=== PATIENT | male | born 1985 | race Caucasian/White ===

== ENCOUNTER 2018-01-28 13:44 | Inpatient (IN) | payer MEDICAID ==
[~2018-01-28] VITALS: Ht 177.8 cm; Wt 66.0 kg
[2018-01-28 14:57] LABS: BASOPHILS % (AUTO) 0.9 % (0.0-2.0); EOSINOPHILS % (AUTO) 1.9 % (1.0-6.0); HEMOGLOBIN 15.7 g/dL (13.5-17.5); LYMPHOCYTES # (AUTO) 1.8 K/uL (1.0-4.8); LYMPHOCYTES % (AUTO) 19.6 % (22.0-44.0); MEAN CORPUSCULAR HEMOGLOBIN 28.7 pg (26.0-34.0); MEAN CORPUSCULAR HGB CONC 34.9 G/dL (31.0-37.0); MEAN CORPUSCULAR VOLUME 82 fL (80-100); MONOCYTES # (AUTO) 0.9 K/uL (0.1-1.0); MONOCYTES % (AUTO) 9.6 % (2.0-9.0); NEUTROPHILS # (AUTO) 6.2 K/uL (1.8-7.7); PLATELET COUNT (AUTO) 376 K/uL (150-450); RED BLOOD CELL COUNT(AUTO) 5.47 MIL/uL (4.50-5.90); RED CELL DISTRIBUTION WIDTH 12.3 % (11.5-14.5)
[2018-01-28 15:06] LABS: AMPHET/METH SCREEN,URINE POSITIVE (NEGATIVE); BARBITURATE SCREEN, URINE NEGATIVE (NEGATIVE); BENZODIAZEPINES SCREEN,URINE NEGATIVE (NEGATIVE); CANNABINOID SCREEN,URINE NEGATIVE (NEGATIVE); COCAINE SCREEN,URINE NEGATIVE (NEGATIVE); METHADONE SCREEN, URINE NEGATIVE (NEGATIVE); OPIATE SCREEN,URINE POSITIVE (NEGATIVE)
[2018-01-28 15:09] LABS: PHENCYCLIDINE SCREEN,URINE NEGATIVE (NEGATIVE)
[2018-01-28 15:20] LABS: ANION GAP 8 mmol/L (8-16); CALCIUM, TOTAL 9.7 mg/dL (8.8-10.5); CARBON DIOXIDE 28 mmol/L (22-29); CHLORIDE 106 mmol/L (98-107); CREATININE 1.05 mg/dL (0.60-1.30); GLOMERULAR FILTR. RATE CALC > 60 mL/min (>60); GLUCOSE,RANDOM 105 mg/dL (70-110); POTASSIUM 4.3 mmol/L (3.5-5.1); SODIUM SERUM 142 mmol/L (136-145); UREA NITROGEN, BLOOD 22 mg/dL (7-18)
[2018-01-28 15:26] LABS: ALANINE AMINOTRANSFERASE 37 U/L (12-78); ALBUMIN 4.5 g/dL (3.4-5.0); ALKALINE PHOSPHATASE 76 U/L (46-116); ASPARTATE AMINOTRANSFERASE 74 U/L (15-37); BILIRUBIN,TOTAL 0.9 mg/dL (0.1-1.0); TOTAL PROTEIN, SERUM 7.5 g/dL (6.4-8.2)
[2018-01-28 18:27] VITALS: BP 106/63
[2018-01-28] MEDS: ZOLPIDEM TARTRATE 10 MG TABLET PO PRN (20:21)
[2018-01-28] MEDS ORDERED: MAG HYDROX/AL HYDROX/SIMETH ES 30 ML SUSPENSION UDCUP PO PRN (21:15)
[2018-01-28] MEDS ORDERED: MAGNESIUM HYDROXIDE SUSPENSION 30 ML UDCUP PO PRN (21:15)
[2018-01-28] MEDS ORDERED: IBUPROFEN 400 MG TABLET PO PRN (21:15)
[2018-01-28] MEDS ORDERED: ALBUTEROL SULFATE HFA 90 MCG/PUFF 8 GM INHALER IH PRN (21:15)
[2018-01-28] MEDS ORDERED: ACETAMINOPHEN 325 MG TABLET PO PRN (21:15)
[2018-01-28] MEDS ORDERED: LOPERAMIDE HCL 2 MG CAPSULE PO PRN (21:15)
[2018-01-28] MEDS ORDERED: GuaiFENesin/D-METHORPHAN [SUGAR-FREE] 200-20MG/10 ML SYRUP UDCUP PO PRN (21:15)
[2018-01-28] MEDS ORDERED: CloNIDine HCL 0.1 MG TABLET PO PRN (21:15)
[2018-01-28] MEDS ORDERED: DOCUSATE SODIUM 100 MG CAPSULE PO PRN (21:15)
[2018-01-28] MEDS ORDERED: ONDANSETRON HCL 4 MG TABLET PO PRN (21:15)
[2018-01-29 06:54] VITALS: BP 106/60
[2018-01-29 08:08] VITALS: BP 110/65
[2018-01-29 08:40] LABS: BASOPHILS % (AUTO) 1.9 % (0.0-2.0); EOSINOPHILS % (AUTO) 8.7 % (1.0-6.0); HEMATOCRIT 44.6 % (41-53); HEMOGLOBIN 15.5 g/dL (13.5-17.5); LYMPHOCYTES # (AUTO) 1.6 K/uL (1.0-4.8); LYMPHOCYTES % (AUTO) 34.8 % (22.0-44.0); MEAN CORPUSCULAR HEMOGLOBIN 28.8 pg (26.0-34.0); MEAN CORPUSCULAR HGB CONC 34.8 G/dL (31.0-37.0); MEAN CORPUSCULAR VOLUME 83 fL (80-100); MONOCYTES # (AUTO) 0.5 K/uL (0.1-1.0); MONOCYTES % (AUTO) 10.3 % (2.0-9.0); NEUTROPHILS % (AUTO) 44.3 % (40.0-70.0); PLATELET COUNT (AUTO) 329 K/uL (150-450); RED BLOOD CELL COUNT(AUTO) 5.39 MIL/uL (4.50-5.90); RED CELL DISTRIBUTION WIDTH 12.3 % (11.5-14.5)
[2018-01-29 08:50] VITALS: BP 112/64
[2018-01-29] MEDS: IBUPROFEN 400 MG TABLET PO PRN (08:56)
[2018-01-29] MEDS: LORazepam 2 MG TABLET PO PRN ×3 (08:56→20:55)
[2018-01-29 09:00] LABS: HEMOGLOBIN A1C 5.4 % (4.5-6.2)
[2018-01-29 09:29] LABS: ALANINE AMINOTRANSFERASE 35 U/L (12-78); ALBUMIN 4.1 g/dL (3.4-5.0); ALKALINE PHOSPHATASE 70 U/L (46-116); ANION GAP 9 mmol/L (8-16); ASPARTATE AMINOTRANSFERASE 56 U/L (15-37); BILIRUBIN,TOTAL 0.6 mg/dL (0.1-1.0); CALCIUM, TOTAL 9.3 mg/dL (8.8-10.5); CARBON DIOXIDE 30 mmol/L (22-29); CHLORIDE 102 mmol/L (98-107); CHOL/HDL RATIO 2.8 (4.2-7.3); CHOLESTEROL 141 mg/dL (131-200); CREATININE 0.88 mg/dL (0.60-1.30); GLOMERULAR FILTR. RATE CALC > 60 mL/min (>60); GLUCOSE,RANDOM 108 mg/dL (70-110); HDL CHOLESTEROL 50 mg/dL (40-60); LDL CHOL (CALC.) 80 mg/dL (0-130); POTASSIUM 4.1 mmol/L (3.5-5.1); SODIUM SERUM 141 mmol/L (136-145); THYROID STIMULATING HORMONE 0.42 uIU/mL (0.36-3.74); TOTAL PROTEIN, SERUM 6.6 g/dL (6.4-8.2); TRIGLYCERIDES 54 mg/dL (15-150); UREA NITROGEN, BLOOD 17 mg/dL (7-18)
[2018-01-29 09:56] VITALS: BP 110/66
[2018-01-29 16:00] VITALS: BP 105/65
[2018-01-29] MEDS: OLANZapine 5 MG TABLET PO SCH (20:54)
[2018-01-30 06:37] VITALS: BP 110/63
[2018-01-30 08:08] VITALS: BP 108/63
[2018-01-30] MEDS: IBUPROFEN 400 MG TABLET PO PRN (09:44)
[2018-01-30] MEDS: LORazepam 2 MG TABLET PO PRN ×2 (09:45→16:16)
[2018-01-30 16:05] VITALS: BP 115/73
[2018-01-30] MEDS: OLANZapine 5 MG TABLET PO SCH (20:18)
[2018-01-31 03:25] VITALS: BP 110/68
[2018-01-31 08:06] VITALS: BP 110/68
[2018-01-31] MEDS: LORazepam 2 MG TABLET PO PRN ×2 (08:42→17:10)
[2018-01-31] MEDS: QUEtiapine FUMARATE 100 MG TABLET PO PRN ×2 (09:01→17:10)
[2018-01-31] MEDS: OLANZapine 5 MG TABLET PO SCH ×2 (10:35→20:18)
[2018-01-31 16:26] VITALS: BP 112/74
[2018-01-31] MEDS: ZOLPIDEM TARTRATE 10 MG TABLET PO PRN (20:18)
[2018-02-01 06:20] VITALS: BP 104/71
[2018-02-01 08:00] VITALS: BP 111/64
[2018-02-01] MEDS: LORazepam 2 MG TABLET PO PRN ×4 (08:05→20:47)
[2018-02-01] MEDS: OLANZapine 5 MG TABLET PO SCH ×2 (08:05→20:47)
[2018-02-01 09:09] VITALS: BP 116/70
[2018-02-01] MEDS: IBUPROFEN 400 MG TABLET PO PRN (09:09)
[2018-02-01 10:09] VITALS: BP 110/66
[2018-02-01 16:00] VITALS: BP 118/72
[2018-02-01] MEDS: QUEtiapine FUMARATE 100 MG TABLET PO PRN ×2 (16:47→20:47)
[2018-02-01] MEDS: ZOLPIDEM TARTRATE 10 MG TABLET PO PRN (20:47)
[2018-02-02 05:51] VITALS: BP 114/65
[2018-02-02] MEDS: LORazepam 2 MG TABLET PO PRN ×4 (08:00→20:58)
[2018-02-02 08:01] VITALS: BP 128/74
[2018-02-02] MEDS: QUEtiapine FUMARATE 100 MG TABLET PO PRN ×4 (08:01→20:58)
[2018-02-02] MEDS: OLANZapine 5 MG TABLET PO SCH ×2 (08:01→20:58)
[2018-02-02] MEDS: IBUPROFEN 400 MG TABLET PO PRN (08:01)
[2018-02-02 08:21] VITALS: BP 130/74
[2018-02-02 17:14] VITALS: BP 115/64
[2018-02-02] MEDS: ZOLPIDEM TARTRATE 10 MG TABLET PO PRN (20:58)
[2018-02-03 00:33] VITALS: BP 118/72
[2018-02-03] MEDS: OLANZapine 5 MG TABLET PO SCH ×2 (08:08→20:42)
[2018-02-03] MEDS: LORazepam 2 MG TABLET PO PRN ×3 (08:08→16:23)
[2018-02-03] MEDS: QUEtiapine FUMARATE 100 MG TABLET PO PRN ×3 (08:08→16:23)
[2018-02-03 08:09] VITALS: BP 112/68
[2018-02-03] MEDS: ACETAMINOPHEN 325 MG TABLET PO PRN (08:10)
[2018-02-03 09:10] VITALS: BP 110/62
[2018-02-03] MEDS: ESCITALOPRAM OXALATE 10 MG TABLET PO SCH (10:08)
[2018-02-03 16:00] VITALS: BP 109/65
[2018-02-03] MEDS: ZOLPIDEM TARTRATE 10 MG TABLET PO PRN (21:28)
[2018-02-04 06:14] VITALS: BP 108/68
[2018-02-04] MEDS: QUEtiapine FUMARATE 100 MG TABLET PO PRN ×4 (08:05→22:12)
[2018-02-04] MEDS: LORazepam 2 MG TABLET PO PRN ×4 (08:05→22:12)
[2018-02-04] MEDS: OLANZapine 5 MG TABLET PO SCH ×2 (08:06→20:08)
[2018-02-04 08:09] VITALS: BP 124/75
[2018-02-04] MEDS: ESCITALOPRAM OXALATE 10 MG TABLET PO SCH (08:11)
[2018-02-04] MEDS: ACETAMINOPHEN 325 MG TABLET PO PRN (09:00)
[2018-02-04 16:12] VITALS: BP 115/66
[2018-02-04] MEDS: ZOLPIDEM TARTRATE 10 MG TABLET PO PRN (20:08)
[2018-02-05 04:44] VITALS: BP 116/78
[2018-02-05 08:08] VITALS: BP 120/78
[2018-02-05] MEDS: QUEtiapine FUMARATE 100 MG TABLET PO PRN ×4 (08:18→20:50)
[2018-02-05] MEDS: OLANZapine 5 MG TABLET PO SCH ×2 (08:18→20:50)
[2018-02-05] MEDS: LORazepam 2 MG TABLET PO PRN ×4 (08:18→20:51)
[2018-02-05] MEDS: ESCITALOPRAM OXALATE 10 MG TABLET PO SCH (08:18)
[2018-02-05] MEDS: ACETAMINOPHEN 325 MG TABLET PO PRN (08:48)
[2018-02-05 09:48] VITALS: BP 118/68
[2018-02-05 16:00] VITALS: BP 110/76
[2018-02-05] MEDS: LevETIRAcetam 500 MG TABLET PO SCH (16:34)
[2018-02-05] MEDS: IBUPROFEN 400 MG TABLET PO PRN (16:34)
[2018-02-05] MEDS: ZOLPIDEM TARTRATE 10 MG TABLET PO PRN (20:51)
[2018-02-06 00:29] VITALS: BP 121/62
[2018-02-06] MEDS ORDERED: LEVE500T53 PO (08:25)
[2018-02-06] MEDS ORDERED: ESCI10TA PO (08:25)
[2018-02-06] MEDS ORDERED: OLAN5TAB2 PO (08:25)
[2018-02-06] MEDS: LevETIRAcetam 500 MG TABLET PO SCH (08:34)
[2018-02-06] MEDS: ESCITALOPRAM OXALATE 10 MG TABLET PO SCH (08:35)
[2018-02-06] MEDS: OLANZapine 5 MG TABLET PO SCH (08:35)
[2018-02-06 08:53] VITALS: BP 138/29
== END 2018-02-06 10:30 | disposition home or self-care (01) | DRG 750 ==
LOC: EMS 13:46 → B3A 16:27
DX: F20.0 Paranoid schizophrenia (principal); G40.909 Epilepsy, unspecified, not intractable, without status epilepticus; F11.10 Opioid abuse, uncomplicated; F15.10 Other stimulant abuse, uncomplicated; F17.210 Nicotine dependence, cigarettes, uncomplicated; F32.9 Major depressive disorder, single episode, unspecified; F41.9 Anxiety disorder, unspecified; F43.10 Post-traumatic stress disorder, unspecified; F99 Mental disorder, not otherwise specified; Z79.899 Other long term (current) drug therapy
CPT/HCPCS: 80074; 83036; 84443; 99285; G0480

== ENCOUNTER 2020-01-15 20:25 | Inpatient (IN) | payer MEDICAID ==
[~2020-01-15] VITALS: Ht 177.8 cm; Wt 64.4 kg
[~2020-01-15 20:25] MED LIST: ESCI-8 PO; LEVE500T53 PO; OLAN5TAB2 PO
[2020-01-15 21:07] LABS: BASOPHILS % (AUTO) 0.9 % (0.0-2.0); EOSINOPHILS % (AUTO) 2.9 % (1.0-6.0); HEMATOCRIT 41.2 % (41-53); HEMOGLOBIN 14.1 g/dL (13.5-17.5); LYMPHOCYTES # (AUTO) 1.3 K/uL (1.0-4.8); LYMPHOCYTES % (AUTO) 20.7 % (22.0-44.0); MEAN CORPUSCULAR HEMOGLOBIN 28.8 pg (26.0-34.0); MEAN CORPUSCULAR HGB CONC 34.2 G/dL (31.0-37.0); MEAN CORPUSCULAR VOLUME 84 fL (80-100); MONOCYTES # (AUTO) 0.6 K/uL (0.1-1.0); MONOCYTES % (AUTO) 8.7 % (2.0-9.0); NEUTROPHILS # (AUTO) 4.3 K/uL (1.8-7.7); NEUTROPHILS % (AUTO) 66.8 % (40.0-70.0); PLATELET COUNT (AUTO) 326 K/uL (150-450); RED CELL DISTRIBUTION WIDTH 12.6 % (11.5-14.5)
[2020-01-15 21:16] LABS: ANION GAP 6 mmol/L (8-16); CALCIUM, TOTAL 8.8 mg/dL (8.8-10.5); CARBON DIOXIDE 30 mmol/L (22-29); CHLORIDE 104 mmol/L (98-107); CREATININE 0.95 mg/dL (0.60-1.30); GLOMERULAR FILTR. RATE CALC > 60 mL/min (>60); GLUCOSE,RANDOM 96 mg/dL (70-110); POTASSIUM 3.9 mmol/L (3.5-5.1); SODIUM SERUM 140 mmol/L (136-145); UREA NITROGEN, BLOOD 22 mg/dL (7-18)
[2020-01-15 21:22] LABS: ALANINE AMINOTRANSFERASE 39 U/L (12-78); ALBUMIN 3.8 g/dL (3.4-5.0); ALKALINE PHOSPHATASE 79 U/L (46-116); ASPARTATE AMINOTRANSFERASE 40 U/L (15-37); BILIRUBIN,TOTAL 0.2 mg/dL (0.1-1.0); TOTAL PROTEIN, SERUM 6.8 g/dL (6.4-8.2)
[2020-01-15] MEDS ORDERED: HALOPERIDOL 5 MG TABLET PO PRN (22:30)
[2020-01-16 03:55] VITALS: BP 110/62
[2020-01-16] MEDS ORDERED: DOCUSATE SODIUM 100 MG CAPSULE PO PRN (08:00)
[2020-01-16] MEDS ORDERED: PETROLATUM,WHITE 28 GM JELLY TP PRN (08:00)
[2020-01-16] MEDS ORDERED: MAGNESIUM HYDROXIDE SUSPENSION 30 ML UDCUP PO PRN (08:00)
[2020-01-16] MEDS ORDERED: BACITRACIN 28 GM OINTMENT TP PRN (08:00)
[2020-01-16] MEDS ORDERED: LOPERAMIDE HCL 2 MG CAPSULE PO PRN (08:00)
[2020-01-16] MEDS ORDERED: MAG HYDROX/AL HYDROX/SIMETH ES 30 ML SUSPENSION UDCUP PO PRN (08:00)
[2020-01-16] MEDS ORDERED: CloNIDine HCL 0.1 MG TABLET PO PRN (08:00)
[2020-01-16] MEDS ORDERED: ONDANSETRON HCL 4 MG TABLET PO PRN (08:00)
[2020-01-16] MEDS ORDERED: IBUPROFEN 600 MG TABLET PO PRN (08:00)
[2020-01-16] MEDS ORDERED: OMEPRAZOLE 20 MG CAPSULE PO PRN (08:00)
[2020-01-16] MEDS ORDERED: BENZOCAINE/MENTHOL LOZENGE PO PRN (08:00)
[2020-01-16] MEDS ORDERED: ALBUTEROL SULFATE HFA 90 MCG/PUFF 8 GM INHALER IH PRN (08:00)
[2020-01-16] MEDS: LORazepam 2 MG TABLET PO PRN ×2 (09:44→20:23)
[2020-01-16] MEDS: LevETIRAcetam 500 MG TABLET PO SCH ×2 (09:44→17:18)
[2020-01-16] MEDS: ACETAMINOPHEN 325 MG TABLET PO PRN (09:45)
[2020-01-16 09:48] VITALS: BP 102/65
[2020-01-16 17:02] VITALS: BP 110/62
[2020-01-16] MEDS: OLANZapine 7.5 MG TABLET PO SCH (20:23)
[2020-01-17] VITALS: BP 111/63
[2020-01-17] MEDS: OLANZapine 7.5 MG TABLET PO SCH ×5 (09:00→20:24)
[2020-01-17] MEDS: LevETIRAcetam 500 MG TABLET PO SCH ×3 (09:00→16:51)
[2020-01-17] MEDS: LORazepam 2 MG TABLET PO PRN (12:28)
[2020-01-17] MEDS: ACETAMINOPHEN 325 MG TABLET PO PRN (12:29)
[2020-01-18] VITALS: BP 114/69
[2020-01-18 08:21] LABS: CHOL/HDL RATIO 4.3 (4.2-7.3)
[2020-01-18 08:43] VITALS: BP 125/79
[2020-01-18] MEDS: OLANZapine 7.5 MG TABLET PO SCH ×2 (08:44→21:05)
[2020-01-18] MEDS: LevETIRAcetam 500 MG TABLET PO SCH ×2 (09:00→21:05)
[2020-01-18 16:09] VITALS: BP 116/62
[2020-01-19 04:25] VITALS: BP 110/68
[2020-01-19 08:19] VITALS: BP 120/75
[2020-01-19] MEDS: OLANZapine 7.5 MG TABLET PO SCH ×2 (08:50→20:17)
[2020-01-19] MEDS: LevETIRAcetam 500 MG TABLET PO SCH ×2 (08:51→16:45)
[2020-01-19] MEDS: LORazepam 2 MG TABLET PO PRN ×2 (08:56→16:51)
[2020-01-19] MEDS: ACETAMINOPHEN 325 MG TABLET PO PRN (16:51)
[2020-01-19 16:59] VITALS: BP 110/65
[2020-01-20 00:43] VITALS: BP 119/73
[2020-01-20] MEDS: LevETIRAcetam 500 MG TABLET PO SCH ×2 (08:30→16:28)
[2020-01-20] MEDS: OLANZapine 7.5 MG TABLET PO SCH ×2 (08:31→20:16)
[2020-01-20 09:29] VITALS: BP 111/66
[2020-01-20 16:07] VITALS: BP 114/63
[2020-01-21 04:37] VITALS: BP 114/67
[2020-01-21] MEDS: LevETIRAcetam 500 MG TABLET PO SCH ×2 (08:31→16:23)
[2020-01-21] MEDS: OLANZapine 7.5 MG TABLET PO SCH ×2 (08:31→21:25)
[2020-01-21 08:43] VITALS: BP 120/90
[2020-01-21] MEDS: LORazepam 2 MG TABLET PO PRN ×3 (09:25→23:27)
[2020-01-21 16:09] VITALS: BP 105/70
[2020-01-21] MEDS: ZOLPIDEM TARTRATE 10 MG TABLET PO PRN (23:27)
[2020-01-22 01:53] VITALS: BP 119/76
[2020-01-22 08:14] VITALS: BP 107/83
[2020-01-22] MEDS: LevETIRAcetam 500 MG TABLET PO SCH ×2 (08:15→16:42)
[2020-01-22] MEDS: OLANZapine 7.5 MG TABLET PO SCH ×2 (08:15→20:27)
[2020-01-22] MEDS: LORazepam 2 MG TABLET PO PRN ×2 (08:17→16:48)
[2020-01-22] MEDS: ACETAMINOPHEN 325 MG TABLET PO PRN ×2 (08:18→16:49)
[2020-01-22 16:19] VITALS: BP 124/64
[2020-01-23 00:13] VITALS: BP 120/62
[2020-01-23] MEDS: OLANZapine 7.5 MG TABLET PO SCH ×2 (08:03→20:10)
[2020-01-23] MEDS: LORazepam 2 MG TABLET PO PRN ×2 (08:03→20:10)
[2020-01-23] MEDS: OMEGA-3/DHA/EPA/FISH OIL 500 MG CAPSULE PO SCH (08:03)
[2020-01-23] MEDS: LevETIRAcetam 500 MG TABLET PO SCH ×2 (08:03→16:41)
[2020-01-23 08:12] VITALS: BP 124/72
[2020-01-23 16:30] VITALS: BP 108/52
[2020-01-24 03:03] VITALS: BP 126/82
[2020-01-24] MEDS: OLANZapine 7.5 MG TABLET PO SCH ×2 (08:11→20:28)
[2020-01-24] MEDS: LevETIRAcetam 500 MG TABLET PO SCH ×2 (08:11→16:59)
[2020-01-24] MEDS: LORazepam 2 MG TABLET PO PRN ×3 (08:11→16:59)
[2020-01-24] MEDS: OMEGA-3/DHA/EPA/FISH OIL 500 MG CAPSULE PO SCH (08:11)
[2020-01-24 08:38] VITALS: BP 115/56
[2020-01-24 16:16] VITALS: BP 108/66
[2020-01-25 01:45] VITALS: BP 122/78
[2020-01-25] MEDS: ZOLPIDEM TARTRATE 10 MG TABLET PO PRN (01:53)
[2020-01-25 08:27] VITALS: BP 131/83
[2020-01-25] MEDS: LORazepam 2 MG TABLET PO PRN ×3 (08:29→17:34)
[2020-01-25] MEDS: OMEGA-3/DHA/EPA/FISH OIL 500 MG CAPSULE PO SCH (08:29)
[2020-01-25] MEDS: OLANZapine 7.5 MG TABLET PO SCH ×2 (08:29→21:30)
[2020-01-25] MEDS: LevETIRAcetam 500 MG TABLET PO SCH ×2 (08:29→16:51)
[2020-01-25] MEDS: ACETAMINOPHEN 325 MG TABLET PO PRN (08:29)
[2020-01-25 16:38] VITALS: BP 125/75
[2020-01-26 05:36] VITALS: BP 140/93
[2020-01-26] MEDS: ACETAMINOPHEN 325 MG TABLET PO PRN ×2 (08:20→20:09)
[2020-01-26] MEDS: LORazepam 2 MG TABLET PO PRN ×3 (08:21→16:55)
[2020-01-26] MEDS: OMEGA-3/DHA/EPA/FISH OIL 500 MG CAPSULE PO SCH (08:21)
[2020-01-26] MEDS: OLANZapine 7.5 MG TABLET PO SCH ×2 (08:21→19:59)
[2020-01-26] MEDS: LevETIRAcetam 500 MG TABLET PO SCH ×2 (08:21→16:54)
[2020-01-26 08:51] VITALS: BP 127/75
[2020-01-26 16:09] VITALS: BP 116/77
[2020-01-26] MEDS: ZOLPIDEM TARTRATE 10 MG TABLET PO PRN (20:55)
[2020-01-27 01:44] VITALS: BP 128/76
[2020-01-27] MEDS: OMEGA-3/DHA/EPA/FISH OIL 500 MG CAPSULE PO SCH (08:07)
[2020-01-27] MEDS: LevETIRAcetam 500 MG TABLET PO SCH ×2 (08:07→16:24)
[2020-01-27] MEDS: OLANZapine 7.5 MG TABLET PO SCH ×2 (08:07→20:14)
[2020-01-27] MEDS: LORazepam 2 MG TABLET PO PRN ×3 (08:07→20:16)
[2020-01-27 08:42] VITALS: BP 113/72
[2020-01-27 16:08] VITALS: BP 118/76
[2020-01-28 06:23] VITALS: BP 131/55
[2020-01-28] MEDS ORDERED: OLAN7.5T9 PO (08:43)
[2020-01-28] MEDS: OMEGA-3/DHA/EPA/FISH OIL 500 MG CAPSULE PO SCH (08:44)
[2020-01-28 08:45] VITALS: BP 133/87
[2020-01-28] MEDS: OLANZapine 7.5 MG TABLET PO SCH (08:45)
[2020-01-28] MEDS: LevETIRAcetam 500 MG TABLET PO SCH (08:45)
[2020-01-28] MEDS: LORazepam 2 MG TABLET PO PRN (08:49)
== END 2020-01-28 15:15 | disposition home or self-care (01) | DRG 750 ==
LOC: EMS 20:25 → B2S 22:28 → UNDOADMIN 23:39 → B2S 01-16 01:00
PROVIDERS: ADMIT Psychiatry & Neurology Psychiatry; ATTEND Psychiatry & Neurology Psychiatry
DX: F20.0 Paranoid schizophrenia (principal); F32.9 Major depressive disorder, single episode, unspecified; F43.10 Post-traumatic stress disorder, unspecified; K59.00 Constipation, unspecified; G40.909 Epilepsy, unspecified, not intractable, without status epilepticus; G47.00 Insomnia, unspecified; F17.210 Nicotine dependence, cigarettes, uncomplicated; Z79.899 Other long term (current) drug therapy; Z91.14 Patient's other noncompliance with medication regimen
CPT/HCPCS: G0480

== ENCOUNTER 2020-02-12 17:49 | Emergency (ER) | payer MEDICAID ==
[~2020-02-12] VITALS: Ht 175.3 cm; Wt 65.9 kg
[~2020-02-12 17:49] MED LIST changes: -ESCI-8 PO; -OLAN5TAB2 PO; +OLAN7.5T9 PO
[2020-02-12 21:18] LABS: BASOPHILS % (AUTO) 0.5 % (0.0-2.0); EOSINOPHILS % (AUTO) 2.3 % (1.0-6.0); HEMATOCRIT 42.5 % (41-53); HEMOGLOBIN 14.2 g/dL (13.5-17.5); LYMPHOCYTES # (AUTO) 1.3 K/uL (1.0-4.8); LYMPHOCYTES % (AUTO) 18.7 % (22.0-44.0); MEAN CORPUSCULAR HEMOGLOBIN 28.6 pg (26.0-34.0); MEAN CORPUSCULAR HGB CONC 33.4 G/dL (31.0-37.0); MEAN CORPUSCULAR VOLUME 86 fL (80-100); MONOCYTES # (AUTO) 0.4 K/uL (0.1-1.0); MONOCYTES % (AUTO) 6.4 % (2.0-9.0); NEUTROPHILS # (AUTO) 4.9 K/uL (1.8-7.7); NEUTROPHILS % (AUTO) 72.1 % (40.0-70.0); PLATELET COUNT (AUTO) 357 K/uL (150-450); RED BLOOD CELL COUNT(AUTO) 4.95 MIL/uL (4.50-5.90); RED CELL DISTRIBUTION WIDTH 12.6 % (11.5-14.5)
[2020-02-12 21:32] LABS: ANION GAP 6 mmol/L (8-16); CALCIUM, TOTAL 8.8 mg/dL (8.8-10.5); CARBON DIOXIDE 32 mmol/L (22-29); CHLORIDE 102 mmol/L (98-107); CREATININE 0.95 mg/dL (0.60-1.30); GLOMERULAR FILTR. RATE CALC > 60 mL/min (>60); GLUCOSE,RANDOM 131 mg/dL (70-110); POTASSIUM 3.6 mmol/L (3.5-5.1); SODIUM SERUM 140 mmol/L (136-145); UREA NITROGEN, BLOOD 13 mg/dL (7-18)
[2020-02-12 21:38] LABS: ALANINE AMINOTRANSFERASE 47 U/L (12-78); ALBUMIN 4.2 g/dL (3.4-5.0); ALKALINE PHOSPHATASE 71 U/L (46-116); ASPARTATE AMINOTRANSFERASE 41 U/L (15-37); BILIRUBIN,TOTAL 0.7 mg/dL (0.1-1.0); TOTAL PROTEIN, SERUM 6.7 g/dL (6.4-8.2)
[2020-02-12] MEDS ORDERED: OLANZapine 5 MG TABLET PO ONE (23:00)
[2020-02-12] MEDS ORDERED: LORazepam 1 MG TABLET PO ONE (23:00)
[2020-02-13] VITALS: BP 142/76
[2020-02-13 01:22] LABS: AMPHET/METH SCREEN,URINE POSITIVE (NEGATIVE); BARBITURATE SCREEN, URINE NEGATIVE (NEGATIVE); BENZODIAZEPINES SCREEN,URINE NEGATIVE (NEGATIVE); CANNABINOID SCREEN,URINE NEGATIVE (NEGATIVE); COCAINE SCREEN,URINE NEGATIVE (NEGATIVE); METHADONE SCREEN, URINE NEGATIVE (NEGATIVE); OPIATE SCREEN,URINE NEGATIVE (NEGATIVE)
[2020-02-13 01:26] LABS: PHENCYCLIDINE SCREEN,URINE NEGATIVE (NEGATIVE)
== END 2020-02-13 00:30 | disposition home or self-care (01) ==
LOC: EMS 17:49
DX: F41.9 Anxiety disorder, unspecified (principal); F20.9 Schizophrenia, unspecified; F32.9 Major depressive disorder, single episode, unspecified; F17.210 Nicotine dependence, cigarettes, uncomplicated
CPT/HCPCS: 36415; 80053; 80307; 85025; 99284; G0480

== ENCOUNTER 2020-02-29 19:31 | Emergency (ER) | payer MEDICAID ==
[~2020-02-29] VITALS: Ht 175.3 cm; Wt 75.0 kg
[2020-02-29] MEDS ORDERED: LORazepam 2 MG TABLET PO ONE (21:45)
[2020-02-29 22:37] VITALS: BP 127/81
== END 2020-02-29 22:42 | disposition home or self-care (01) ==
LOC: EMS 19:31
DX: F41.9 Anxiety disorder, unspecified (principal); F32.9 Major depressive disorder, single episode, unspecified; F20.9 Schizophrenia, unspecified; F17.210 Nicotine dependence, cigarettes, uncomplicated

== ENCOUNTER 2020-11-18 16:51 | Inpatient (IN) | payer MEDICAID ==
[~2020-11-18] VITALS: Ht 175.3 cm; Wt 74.8 kg
[2020-11-18 20:47] LABS: COVID AG,FIA SOURCE NASOPHARYNGEAL
[2020-11-18 21:16] LABS: BASOPHILS % (AUTO) 1.3 % (0.0-2.0); EOSINOPHILS % (AUTO) 3.7 % (1.0-6.0); HEMATOCRIT 43.3 % (41-53); HEMOGLOBIN 14.3 g/dL (13.5-17.5); LYMPHOCYTES # (AUTO) 1.1 K/uL (1.0-4.8); LYMPHOCYTES % (AUTO) 21.1 % (22.0-44.0); MEAN CORPUSCULAR HEMOGLOBIN 27.6 pg (26.0-34.0); MEAN CORPUSCULAR HGB CONC 33.1 G/dL (31.0-37.0); MEAN CORPUSCULAR VOLUME 84 fL (80-100); MONOCYTES # (AUTO) 0.4 K/uL (0.1-1.0); MONOCYTES % (AUTO) 6.6 % (2.0-9.0); NEUTROPHILS # (AUTO) 3.7 K/uL (1.8-7.7); NEUTROPHILS % (AUTO) 67.3 % (40.0-70.0); PLATELET COUNT (AUTO) 330 K/uL (150-450); RED BLOOD CELL COUNT(AUTO) 5.18 MIL/uL (4.50-5.90); RED CELL DISTRIBUTION WIDTH 12.6 % (11.5-14.5)
[2020-11-18 21:19] LABS: ANION GAP 4 mmol/L (8-16); CALCIUM, TOTAL 8.7 mg/dL (8.8-10.5); CARBON DIOXIDE 33 mmol/L (22-29); CHLORIDE 105 mmol/L (98-107); CREATININE 1.05 mg/dL (0.60-1.30); GLOMERULAR FILTR. RATE CALC > 60 mL/min (>60); GLUCOSE,RANDOM 83 mg/dL (70-110); POTASSIUM 4.6 mmol/L (3.5-5.1); SODIUM SERUM 142 mmol/L (136-145); UREA NITROGEN, BLOOD 14 mg/dL (7-18)
[2020-11-18 21:25] LABS: ALANINE AMINOTRANSFERASE 24 U/L (12-78); ALBUMIN 3.6 g/dL (3.4-5.0); ALKALINE PHOSPHATASE 86 U/L (46-116); ASPARTATE AMINOTRANSFERASE 23 U/L (15-37); BILIRUBIN,TOTAL 0.5 mg/dL (0.1-1.0); TOTAL PROTEIN, SERUM 6.6 g/dL (6.4-8.2)
[2020-11-19 00:11] VITALS: BP 111/68
[2020-11-19] MEDS: LORazepam 2 MG TABLET PO PRN ×2 (00:17→11:15)
[2020-11-19] MEDS: ZOLPIDEM TARTRATE 10 MG TABLET PO PRN (00:17)
[2020-11-19 05:00] VITALS: BP 115/68
[2020-11-19 08:25] LABS: CHOL/HDL RATIO 3.6 (4.2-7.3)
[2020-11-19 08:41] VITALS: BP 99/57
[2020-11-19] MEDS ORDERED: MAGNESIUM HYDROXIDE SUSPENSION 30 ML UDCUP PO PRN (09:00)
[2020-11-19] MEDS ORDERED: PETROLATUM,WHITE 28 GM JELLY TP PRN (09:00)
[2020-11-19] MEDS ORDERED: MAG HYDROX/AL HYDROX/SIMETH ES 30 ML SUSPENSION UDCUP PO PRN (09:00)
[2020-11-19] MEDS ORDERED: ONDANSETRON HCL 4 MG TABLET PO PRN (09:00)
[2020-11-19] MEDS ORDERED: LOPERAMIDE HCL 2 MG CAPSULE PO PRN (09:00)
[2020-11-19] MEDS ORDERED: CloNIDine HCL 0.1 MG TABLET PO PRN (09:00)
[2020-11-19] MEDS ORDERED: NICOTINE 14 MG/24 HOUR PATCH TD PRN (09:00)
[2020-11-19] MEDS ORDERED: GuaiFENesin/D-METHORPHAN [SUGAR-FREE] 200-20MG/10 ML SYRUP UDCUP PO PRN (09:00)
[2020-11-19] MEDS ORDERED: ACETAMINOPHEN 325 MG TABLET PO PRN (09:00)
[2020-11-19] MEDS ORDERED: DOCUSATE SODIUM 100 MG CAPSULE PO PRN (09:00)
[2020-11-19] MEDS ORDERED: ALBUTEROL SULFATE HFA 90 MCG/PUFF 8 GM INHALER IH PRN (09:00)
[2020-11-19] MEDS: OLANZapine 7.5 MG TABLET PO SCH ×2 (11:24→20:47)
[2020-11-19 12:27] VITALS: BP 99/57
[2020-11-19 16:04] VITALS: BP 89/60
[2020-11-20 06:15] VITALS: BP 135/75
[2020-11-20] MEDS: LORazepam 2 MG TABLET PO PRN (08:00)
[2020-11-20] MEDS: OLANZapine 7.5 MG TABLET PO SCH ×2 (08:48→20:32)
[2020-11-20 09:01] VITALS: BP 111/65
[2020-11-20 17:10] VITALS: BP 116/73
[2020-11-20] MEDS: ZOLPIDEM TARTRATE 10 MG TABLET PO PRN (20:38)
[2020-11-21 05:14] VITALS: BP 110/71
[2020-11-21] MEDS: LORazepam 2 MG TABLET PO PRN ×2 (08:00→20:43)
[2020-11-21] MEDS: OLANZapine 7.5 MG TABLET PO SCH ×2 (08:50→20:43)
[2020-11-21 10:45] VITALS: BP 117/60
[2020-11-21 16:35] VITALS: BP 110/71
[2020-11-22 02:24] VITALS: BP 100/74
[2020-11-22 08:17] VITALS: BP 107/69
[2020-11-22] MEDS: OLANZapine 7.5 MG TABLET PO SCH (08:39)
[2020-11-22] MEDS: LORazepam 2 MG TABLET PO PRN (08:39)
[2020-11-22 16:11] VITALS: BP 103/69
[2020-11-22] MEDS: ZOLPIDEM TARTRATE 10 MG TABLET PO PRN (20:26)
[2020-11-22] MEDS: OLANZapine 10 MG TABLET PO SCH (20:26)
[2020-11-23 04:38] VITALS: BP 125/73
[2020-11-23] MEDS: OLANZapine 10 MG TABLET PO SCH ×2 (08:42→20:10)
[2020-11-23] MEDS: LORazepam 2 MG TABLET PO PRN ×2 (08:44→20:10)
[2020-11-23] MEDS: IBUPROFEN 400 MG TABLET PO PRN (08:45)
[2020-11-23 10:11] VITALS: BP 125/82
[2020-11-23 16:11] VITALS: BP 106/70
[2020-11-24 02:38] VITALS: BP 113/83
[2020-11-24 08:14] VITALS: BP 126/80
[2020-11-24] MEDS: LORazepam 2 MG TABLET PO PRN ×3 (09:00→20:46)
[2020-11-24] MEDS: OLANZapine 10 MG TABLET PO SCH ×2 (09:00→20:46)
[2020-11-24 09:02] VITALS: BP 127/81
[2020-11-24] MEDS: IBUPROFEN 400 MG TABLET PO PRN (09:03)
[2020-11-24 16:19] VITALS: BP 110/65
[2020-11-24] MEDS: ZOLPIDEM TARTRATE 10 MG TABLET PO PRN (20:46)
[2020-11-25 00:20] VITALS: BP 116/71
[2020-11-25 08:12] VITALS: BP 125/81
[2020-11-25 08:15] VITALS: BP 125/81
[2020-11-25] MEDS: OLANZapine 10 MG TABLET PO SCH ×2 (08:19→20:32)
[2020-11-25] MEDS: LORazepam 2 MG TABLET PO PRN ×3 (08:19→21:29)
[2020-11-25] MEDS: QUEtiapine FUMARATE 100 MG TABLET PO PRN ×2 (08:19→13:23)
[2020-11-25] MEDS: IBUPROFEN 400 MG TABLET PO PRN (13:30)
[2020-11-25 16:05] VITALS: BP 121/76
[2020-11-25] MEDS: ZOLPIDEM TARTRATE 10 MG TABLET PO PRN (20:32)
[2020-11-26 00:19] VITALS: BP 122/83
[2020-11-26] MEDS: LORazepam 2 MG TABLET PO PRN ×3 (08:11→20:32)
[2020-11-26] MEDS: OLANZapine 10 MG TABLET PO SCH ×2 (08:11→20:32)
[2020-11-26 08:20] VITALS: BP 123/79
[2020-11-26] MEDS: IBUPROFEN 400 MG TABLET PO PRN (08:54)
[2020-11-26 16:31] VITALS: BP 125/86
[2020-11-26] MEDS: QUEtiapine FUMARATE 100 MG TABLET PO PRN (16:32)
[2020-11-26] MEDS: ZOLPIDEM TARTRATE 10 MG TABLET PO PRN (20:32)
[2020-11-27] MEDS: LORazepam 2 MG TABLET PO PRN ×3 (02:57→14:34)
[2020-11-27 03:01] VITALS: BP 130/76
[2020-11-27] MEDS: OLANZapine 10 MG TABLET PO SCH ×2 (08:06→20:19)
[2020-11-27 08:22] VITALS: BP 128/81
[2020-11-27] MEDS: QUEtiapine FUMARATE 100 MG TABLET PO PRN (14:34)
[2020-11-27 16:07] VITALS: BP 124/75
[2020-11-27] MEDS: ZOLPIDEM TARTRATE 10 MG TABLET PO PRN (20:20)
[2020-11-28 02:20] VITALS: BP 121/81
[2020-11-28 08:16] VITALS: BP 132/83
[2020-11-28] MEDS: OLANZapine 10 MG TABLET PO SCH ×2 (08:31→20:55)
[2020-11-28] MEDS: LORazepam 2 MG TABLET PO PRN ×2 (08:41→16:19)
[2020-11-28] MEDS ORDERED: DiphenhydrAMINE HCL 50 MG/ML VIAL ONE (10:43)
[2020-11-28] MEDS ORDERED: HALOPERIDOL LACTATE 5 MG/ML VIAL ONE (10:43)
[2020-11-28] MEDS ORDERED: HALOPERIDOL LACTATE 5 MG/ML VIAL IM ONE (10:45)
[2020-11-28] MEDS ORDERED: DiphenhydrAMINE HCL 50 MG/ML VIAL IM ONE (10:45)
[2020-11-28 16:19] VITALS: BP 116/79
[2020-11-28] MEDS: IBUPROFEN 400 MG TABLET PO PRN (16:19)
[2020-11-28 17:32] VITALS: BP 116/79
[2020-11-28] MEDS: ZOLPIDEM TARTRATE 10 MG TABLET PO PRN (20:55)
[2020-11-29 01:14] VITALS: BP 112/77
[2020-11-29] MEDS: LORazepam 2 MG TABLET PO PRN ×3 (08:09→20:31)
[2020-11-29] MEDS: OLANZapine 10 MG TABLET PO SCH ×2 (08:09→20:05)
[2020-11-29 08:34] VITALS: BP 128/78
[2020-11-29] MEDS: IBUPROFEN 400 MG TABLET PO PRN (08:34)
[2020-11-29 09:30] VITALS: BP 128/78
[2020-11-29 16:28] VITALS: BP 128/81
[2020-11-29] MEDS: ZOLPIDEM TARTRATE 10 MG TABLET PO PRN (20:05)
[2020-11-29] MEDS: GABAPENTIN 300 MG CAPSULE PO SCH (20:05)
[2020-11-30 06:19] VITALS: BP 119/78
[2020-11-30] MEDS: OLANZapine 10 MG TABLET PO SCH ×2 (08:08→20:08)
[2020-11-30] MEDS: LORazepam 2 MG TABLET PO PRN ×3 (08:08→20:08)
[2020-11-30 08:15] VITALS: BP 112/65
[2020-11-30 16:13] VITALS: BP 115/70
[2020-11-30] MEDS: ZOLPIDEM TARTRATE 10 MG TABLET PO PRN (20:08)
[2020-11-30] MEDS: GABAPENTIN 300 MG CAPSULE PO SCH (20:08)
[2020-12-01 05:01] VITALS: BP 122/74
[2020-12-01] MEDS: LORazepam 2 MG TABLET PO PRN ×3 (08:17→20:19)
[2020-12-01] MEDS: OLANZapine 10 MG TABLET PO SCH ×2 (08:17→20:19)
[2020-12-01] MEDS: IBUPROFEN 400 MG TABLET PO PRN (09:11)
[2020-12-01 09:12] VITALS: BP 127/75
[2020-12-01] MEDS: QUEtiapine FUMARATE 100 MG TABLET PO PRN (14:06)
[2020-12-01 16:06] VITALS: BP_SYST 72
[2020-12-01] MEDS: ZOLPIDEM TARTRATE 10 MG TABLET PO PRN (20:20)
[2020-12-01] MEDS: GABAPENTIN 300 MG CAPSULE PO SCH (20:20)
[2020-12-02 04:19] VITALS: BP 126/70
[2020-12-02 08:28] VITALS: BP 124/71
[2020-12-02] MEDS: LORazepam 2 MG TABLET PO PRN ×3 (08:31→20:29)
[2020-12-02] MEDS: OLANZapine 10 MG TABLET PO SCH ×2 (08:31→20:29)
[2020-12-02 10:19] LABS: COVID AG,FIA SOURCE NASOPHARYNGEAL
[2020-12-02] MEDS: GABAPENTIN 300 MG CAPSULE PO SCH (20:29)
[2020-12-02] MEDS: ZOLPIDEM TARTRATE 10 MG TABLET PO PRN (20:29)
[2020-12-02] MEDS: QUEtiapine FUMARATE 100 MG TABLET PO PRN (20:48)
[2020-12-03 06:34] VITALS: BP 114/81
[2020-12-03 08:29] VITALS: BP 123/74
[2020-12-03] MEDS: OLANZapine 10 MG TABLET PO SCH ×2 (08:30→20:31)
[2020-12-03] MEDS: LORazepam 2 MG TABLET PO PRN ×3 (08:30→20:31)
[2020-12-03] MEDS: IBUPROFEN 400 MG TABLET PO PRN (09:06)
[2020-12-03 16:20] VITALS: BP 121/78
[2020-12-03] MEDS: GABAPENTIN 300 MG CAPSULE PO SCH (20:31)
[2020-12-03] MEDS: ZOLPIDEM TARTRATE 10 MG TABLET PO PRN (20:35)
[2020-12-04 04:55] VITALS: BP 118/71
[2020-12-04 08:45] VITALS: BP 113/68
[2020-12-04] MEDS: LORazepam 2 MG TABLET PO PRN ×2 (08:50→15:14)
[2020-12-04] MEDS: OLANZapine 10 MG TABLET PO SCH ×2 (08:50→20:52)
[2020-12-04] MEDS: QUEtiapine FUMARATE 100 MG TABLET PO PRN (08:53)
[2020-12-04] MEDS: IBUPROFEN 400 MG TABLET PO PRN (08:53)
[2020-12-04 16:30] VITALS: BP 110/70
[2020-12-04] MEDS: ZOLPIDEM TARTRATE 10 MG TABLET PO PRN (20:52)
[2020-12-04] MEDS: GABAPENTIN 300 MG CAPSULE PO SCH (20:52)
[2020-12-05 01:14] VITALS: BP 116/76
[2020-12-05] MEDS: LORazepam 2 MG TABLET PO PRN ×2 (08:10→14:10)
[2020-12-05] MEDS: OLANZapine 10 MG TABLET PO SCH (08:38)
[2020-12-05 08:48] VITALS: BP 107/61
[2020-12-05] MEDS: IBUPROFEN 400 MG TABLET PO PRN (14:10)
[2020-12-05] MEDS ORDERED: GABA-1181 PO (14:48)
[2020-12-05] MEDS ORDERED: OLAN10TA74 PO (14:48)
[2020-12-05 16:13] VITALS: BP 126/79
== END 2020-12-05 16:10 | disposition home or self-care (01) | DRG 750 ==
LOC: EMS 17:01 → B3A 19:58
DX: F20.0 Paranoid schizophrenia (principal); Z59.0 Homelessness; F17.200 Nicotine dependence, unspecified, uncomplicated; F43.10 Post-traumatic stress disorder, unspecified; I10 Essential (primary) hypertension; F41.9 Anxiety disorder, unspecified; Z20.822 Contact with and (suspected) exposure to COVID-19
CPT/HCPCS: 80053; 80061; 85025; 93005; 99291; G0480; J1200; J1630

== ENCOUNTER 2023-12-20 08:19 | Emergency (ER) | payer MEDICAID ==
[~2023-12-20] VITALS: Ht 175.3 cm; Wt 79.5 kg
[~2023-12-20 08:19] MED LIST changes: +GABA-1181 PO; -LEVE500T53 PO; +OLAN10TA74 PO; -OLAN7.5T9 PO
[2023-12-20 08:23] VITALS: BP 115/65; PULSE 98; RESP 16; TEMP 97.8
[2023-12-20 09:02] LABS: COVID AG,FIA SOURCE NASAL SWAB
[2023-12-20 09:22] LABS: SARS-COV2 (COVID) ANTIGEN,FIA Negative (Negative)
[2023-12-20 09:26] LABS: BASOPHILS % (AUTO) 0.7 % (0.0-2.0); EOSINOPHILS % (AUTO) 6.1 % (1.0-6.0); HEMATOCRIT 38.7 % (41-53); HEMOGLOBIN 13.2 g/dL (13.5-17.5); LYMPHOCYTES # (AUTO) 1.1 K/uL (1.0-4.8); LYMPHOCYTES % (AUTO) 15.9 % (22.0-44.0); MEAN CORPUSCULAR HEMOGLOBIN 29.6 pg (26.0-34.0); MEAN CORPUSCULAR HGB CONC 34.2 G/dL (31.0-37.0); MEAN CORPUSCULAR VOLUME 87 fL (80-100); MONOCYTES # (AUTO) 0.6 K/uL (0.1-1.0); MONOCYTES % (AUTO) 9.4 % (2.0-9.0); NEUTROPHILS # (AUTO) 4.6 K/uL (1.8-7.7); NEUTROPHILS % (AUTO) 67.9 % (40.0-70.0); PLATELET COUNT (AUTO) 299 K/uL (150-450); RED BLOOD CELL COUNT(AUTO) 4.47 MIL/uL (4.50-5.90); RED CELL DISTRIBUTION WIDTH 13.7 % (11.5-14.5); WHITE BLOOD COUNT (AUTO) 6.8 K/uL (4.5-11.0)
[2023-12-20 09:37] LABS: ANION GAP 7 mmol/L (8-16); CARBON DIOXIDE 28 mmol/L (22-29); CHLORIDE 107 mmol/L (98-107); CREATININE 0.99 mg/dL (0.60-1.30); GLOMERULAR FILTR. RATE CALC > 60 mL/min (>60); GLUCOSE,RANDOM 111 mg/dL (70-110); POTASSIUM 3.1 mmol/L (3.5-5.1); SODIUM SERUM 142 mmol/L (136-145); UREA NITROGEN, BLOOD 16 mg/dL (7-18)
[2023-12-20 09:44] LABS: ALCOHOL, BLOOD (SERUM) < 3 mg/dL (0-10)
[2023-12-20] MEDS: POTASSIUM CHLORIDE 20 MEQ ER TABLET PO ONE (10:25)
== END 2023-12-20 10:56 ==
LOC: EMS 08:19
DX: F20.9 Schizophrenia, unspecified (principal); F41.9 Anxiety disorder, unspecified; F32.A Depression, unspecified; F17.210 Nicotine dependence, cigarettes, uncomplicated; Z20.822 Contact with and (suspected) exposure to COVID-19
CPT/HCPCS: 99285; 87426; 80048; 85025; 36415; G0480

== ENCOUNTER 2023-12-22 23:58 | Emergency (ER) | payer MEDICAID ==
[~2023-12-22] VITALS: Ht 170.2 cm; Wt 65.0 kg
[2023-12-23 00:03] VITALS: BP 120/76; PULSE 100; RESP 16; TEMP 98
== END 2023-12-23 01:06 | disposition home or self-care (01) ==
LOC: EMS 23:58
DX: M79.643 Pain in unspecified hand (principal); F17.210 Nicotine dependence, cigarettes, uncomplicated
CPT/HCPCS: 99283; Z7502